=== PATIENT | female | born 2000 | race Caucasian/White ===

== ENCOUNTER 2019-05-03 18:47 | Emergency (ER) | payer BC, OTHER ==
[~2019-05-03] VITALS: Ht 172 cm; Wt 104.5 kg
--- NOTE | 2019-05-03 19:13 | ED Lower Extremity ---
General Chief Complaint: Laceration Stated Complaint: LACERATION ON LEFT LEG Nursing Triage Note: Pt to Rm 4 with laceration to left goldberg. Pt reports she slid and hit a rock. Pt is able to walk and bend knee without problems. Source: patient Exam Limitations: no limitations History of Present Illness Date Seen by Provider: May 03, 2019 Time Seen by Provider: 19:07 Initial Comments To ER with reports of a laceration to the left proximal lower leg and left great toenail. She was at a sorority event at [facility], fell onto a rock in the [facility], vaccines are up-to-date. Onset: just prior to arrival Severity: moderate Pain/Injury Location: left 1st toe Modifying Factors: Worse With Movement Allergies and Home Medications Allergies Coded Allergies: No Known Drug Allergies (Unverified , 05/03/19) Patient Home Medication List Home Medication List Reviewed: Yes Review of Systems Constitutional: see HPI EENTM: see HPI Respiratory: no symptoms reported Cardiovascular: no symptoms reported Genitourinary: no symptoms reported Musculoskeletal: see HPI Skin: no symptoms reported Psychiatric/Neurological: No Symptoms Reported Past Vrjxujj-Hefszk-Vvipdg Hx Patient Social History Alcohol Use: Denies Use Recreational Drug Use: No Smoking Status: Never a Smoker 2nd Hand Smoke Exposure: No Recent Foreign Travel: No Contact w/Someone Who Travel: No Recent Infectious Disease Expo: No Recent Hopitalizations: No Physical Abuse: No Sexual Abuse: No Mistreated: No Fear: No Seasonal Allergies Seasonal Allergies: No Past Medical History Surgeries: No Respiratory: No Cardiac: No Neurological: No Genitourinary: No Gastrointestinal: No Musculoskeletal: No Endocrine: No HEENT: No Cancer: No Psychosocial: No Integumentary: No Blood Disorders: No Physical Exam Vital Signs Vital Signs - First Documented 05/03/19 18:57 Temp 36.9 Pulse 98 Resp 20 B/P (MAP) 138/96 Pulse Ox 100 O2 Delivery Room Air Capillary Refill : Height, Weight, BMI Height: '" Weight: lbs. oz. kg; 35.00 BMI Method: General Appearance: WD/WN, no apparent distress HEENT: PERRL/EOMI Hips: bilateral hip non-tender, bilateral hip normal inspection, bilateral hip normal range of motion Legs: bilateral leg non-tender, bilateral leg normal inspection, bilateral leg normal range of motion; left leg other (there is a laceration 3 cm in length about 4 mm wide to the lateral anterior aspect of the lower leg on the left, this is down to the subcutaneous tissue, however this is contaminated with dirt and gravel and we will not close this primarily. We irrigated and scrubbed with chlorhexidine/saline solution then covered with Xeroform and gauze. The left great toenail with split the distal tip, it seems that the lateral aspect of his split has been partially avulsed from the nailbed. The nail was trimmed, remaining nail seemed adherent to the nailbed so was not removed. ) Knees: bilateral knee non-tender, bilateral knee normal inspection, bilateral knee normal range of motion Ankles: bilateral ankle non-tender, bilateral ankle normal inspection, bilateral ankle normal range of motion Feet: bilateral foot non-tender, bilateral foot normal inspection, bilateral foot normal range of motion Neurologic/Psychiatric: alert, normal mood/affect, oriented x 3 Skin: normal color, warm/dry Progress/Results/Core Measures Results/Orders My Orders Orders - LUTHER OLIVO APRN Amoxicillin/Clavulanate Tablet (Augmenti (05/03/19 19:15) Vital Signs/I&O 05/03/19 18:57 Temp 36.9 Pulse 98 Resp 20 B/P (MAP) 138/96 Pulse Ox 100 O2 Delivery Room Air Departure Impression Primary Impression: Leg laceration Qualified Codes: S81.812A - Laceration without foreign body, left lower leg, initial encounter Additional Impression: partial toenail avulsion Disposition: 01 HOME, SELF-CARE Condition: Stable Departure-Patient Inst. Decision time for Depature: 19:11 Patient Instructions: Skin Abrasions (DC), Wound Care Add. Discharge Instructions: 1. Because this is a contaminated dirty wound we do not want to stitch this closed. This should be allowed to heal by secondary intention from the bottom up. This will take a little bit longer that the risk of serious infection is really reduced. Antibiotics as directed. Repeat bandage this after showering for the next one or 2 days. All discharge instructions reviewed with patient and/or family. Voiced understanding. Scripts Amoxicillin/Potassium Clav (Augmentin 875-125 Tablet) 1 Each Tablet 1 EACH PO BID, #10 TAB 0 Refills Prov: LUTHER OLIVO APRN 05/03/19 LUTHER OLIVO APRN May 03, 2019 19:13
[2019-05-03] MEDS ORDERED: AMOX-358 PO (19:14)
[2019-05-03] MEDS ORDERED: AUGMENTIN 875 MG TAB (AMOXICILLIN/CLAVULANATE) PO SCH (19:15)
== END 2019-05-03 19:21 | disposition home or self-care (01) ==
LOC: ER 18:50
DX: S81.812A Laceration without foreign body, left lower leg, initial encounter (principal); S91.202A Unspecified open wound of left great toe with damage to nail, initial encounter; W22.8XXA Striking against or struck by other objects, initial encounter
CPT/HCPCS: 99282